=== PATIENT | female | born 1985 | race Caucasian/White ===

== ENCOUNTER 2017-10-22 22:00 | Inpatient (IN) | payer OTHER ==
[2017-10-23] MEDS ORDERED: BISACODYL 10 MG SUPP PR (00:30)
[2017-10-23] MEDS ORDERED: MAGNESIUM HYDROXIDE 30ML CUP PO (00:30)
[2017-10-23] MEDS: CEFTRIAXONE 2 GM/50 ML (PMX) 50 ML IVPB ×2 (00:30→15:16)
[2017-10-23] MEDS ORDERED: HYDROCODONE/APAP (5/325) TAB PO ×2 (00:30)
[2017-10-23] MEDS ORDERED: VANCOMYCIN IV PER PHARMACY XX (00:30)
[2017-10-23] MEDS ORDERED: NACL 0.9% 3 ML SYG IV (00:30)
[2017-10-23] MEDS ORDERED: NITROGLYCERIN (SL) 0.4 MG TAB SL (00:30)
[2017-10-23] MEDS ORDERED: DOCUSATE SODIUM 100 MG CAP PO (00:30)
[2017-10-23] MEDS: morphine 2 MG INJ IV (01:46)
[2017-10-23 01:54] LABS: ABNORMAL IP MESSAGE 1; HEMATOCRIT 44.5 % (37.0-47.0); MEAN CORPUSCULAR HGB CONC 31.5 g/dl (32.0-37.0); MEAN CORPUSCULAR VOLUME 85.7 fl (82.0-101.0); MEAN PLATELET VOLUME 11.3 fl (7.4-10.4); NUCLEATED RED BLOOD CELLS% 0.1 /100WBC (0.0-0.0); PLATELET COUNT 120 10^3/UL (140-415); RED BLOOD COUNT 5.19 10^6/ul (4.20-5.40)
[2017-10-23 01:54] LABS: WHITE BLOOD COUNT 16.4 10^3/ul (4.8-10.8)
[2017-10-23 02:22] LABS: ADD MAN DIFF? YES; POSITIVE DIFF @See below
[2017-10-23 02:35] LABS: LACTIC ACID 3.5 mmol/L (0.5-2.0)
[2017-10-23 02:44] LABS: ALANINE AMINOTRANSFERASE 481 IU/L (13-69); ALBUMIN/GLOBULIN RATIO 1.02; ALKALINE PHOSPHATASE 83 IU/L (42-121); ANION GAP 22 (8-16); BILIRUBIN,INDIRECT 0.5 mg/dl (0-1.1); BILIRUBIN,TOTAL 0.5 mg/dl (0.2-1.3); BLOOD UREA NITROGEN 33 mg/dl (7-20); C-REACTIVE PROTEIN 5.2 mg/dl (0.0-0.9); CALCIUM 8.7 mg/dl (8.4-10.2); CARBON DIOXIDE 19 mmol/L (21-31); CHLORIDE 104 mmol/L (97-110); CREATININE 1.97 mg/dl (0.44-1.00); GLUCOSE 102 mg/dl (70-220); SODIUM 139 mmol/L (135-144); TOTAL PROTEIN 7.9 g/dl (6.1-8.1)
[2017-10-23 02:52] LABS: CK-MB 3.89 ng/ml (0.0-2.4); TROPONIN-I 0.047 ng/ml (0.00-0.12)
[2017-10-23 03:22] LABS: ASPARTATE AMINO TRANSFERASE 872 IU/L (15-46)
[2017-10-23 03:25] LABS: B-TYPE NATRIURETIC PEPTIDE 41600 PG/ML (0-125)
[2017-10-23] MEDS: VANCOMYCIN 1 GM 250 ML IVPB ×2 (03:33→03:41)
[2017-10-23 03:52] LABS: ERYTHROCYTE SEDIMENTATION RATE 2 mm/Hr (0-20)
[2017-10-23 04:16] LABS: LYMPHOCYTES # 9.5 10^3/ul (0.8-2.9); LYMPHOCYTES #M 9.5 10^3/ul (0.8-2.9); LYMPHOCYTES % (M) 58 % (15-51); MONOCYTE # 0.5 10^3/ul (0.3-0.9); MONOCYTE #M 0.4 10^3/ul (0.3-0.9); MONOCYTES % (M) 3 % (0-11); SEGMENTED NEUTROPHILS (M) % 39 % (39-77)
[2017-10-23 04:18] LABS: ANISOCYTOSIS 1+ (0-0); BURR CELLS 1+; POLYCHROMASIA 1+ (0-0)
[2017-10-23 04:19] LABS: OVALOCYTES 1+ (0-0)
[2017-10-23] MEDS: METHADONE 10 MG TAB PO (06:32)
[2017-10-23 07:08] LABS: POTASSIUM 6.2 mmol/L (3.5-5.1)
[2017-10-23 08:49] LABS: CK INDEX 2.5
[2017-10-23 08:51] LABS: CREATINE KINASE 156 IU/L (23-200)
[2017-10-23] MEDS: ENOXAPARIN 40 MG/0.4 ML SYG SC (09:00)
[2017-10-23] MEDS: FUROSEMIDE 20 MG INJ IV (09:00)
[2017-10-23 09:25] LABS: HIV 1&2 ANTIBODY NEGATIVE (NEGATIVE)
[2017-10-23] MEDS: FAMOTIDINE 20 MG TAB PO ×2 (09:39→20:29)
[2017-10-23] MEDS: ASPIRIN 81 MG TAB PO (09:39)
[2017-10-23] MEDS: LORAZEPAM 0.5 MG TAB PO (09:39)
[2017-10-23 10:50] LABS: CREATINE KINASE 123 IU/L (23-200)
[2017-10-23 10:53] LABS: CK INDEX 3.3; CK-MB 4.07 ng/ml (0.0-2.4)
[2017-10-23 11:02] LABS: TROPONIN-I 0.131 ng/ml (0.00-0.12)
[2017-10-23] MEDS: ONDANSETRON 4 MG INJ IV (11:06)
[2017-10-23 12:54] LABS: ANION GAP 19 (8-16); BLOOD UREA NITROGEN 37 mg/dl (7-20); CALCIUM 8.4 mg/dl (8.4-10.2); CARBON DIOXIDE 22 mmol/L (21-31); CHLORIDE 104 mmol/L (97-110); CREATININE 2.13 mg/dl (0.44-1.00); GLUCOSE 85 mg/dl (70-220); SODIUM 138 mmol/L (135-144)
[2017-10-23 12:58] LABS: POTASSIUM 7.1 mmol/L (3.5-5.1)
[2017-10-23] MEDS: NICOTINE (21 MG/24 HR) PATCH TRANSDERM (13:00)
[2017-10-23] MEDS: SILDENAFIL 20 MG TAB PO (13:00)
[2017-10-23] MEDS: SOD CHLORIDE 0.9% 250 ML IV ×2 (13:26→16:30)
[2017-10-23 13:41] LABS: HAAIG REFLEX REFLEX FILED
[2017-10-23 14:33] LABS: HEPATITIS B SURFACE ANTIGEN NEGATIVE (NEGATIVE)
[2017-10-23 14:51] LABS: HEPATITIS B CORE ANTIBODY NEGATIVE (NEGATIVE)
[2017-10-23 14:53] LABS: HEPATITIS C VIRAL ANTIBODY REACTIVE (NEGATIVE)
[2017-10-23] MEDS: NA POLYST SULFON 15 GM/60 ML BTL PO ×2 (15:00→15:54)
[2017-10-23] MEDS: SOD CHLORIDE 0.9% 1,000 ML IV ×2 (15:16→22:44)
[2017-10-23 15:21] LABS: CREATINE KINASE 148 IU/L (23-200)
[2017-10-23 15:28] LABS: LACTIC ACID 3.1 mmol/L (0.5-2.0)
[2017-10-23 15:29] LABS: AMPHETAMINE/METHAMPHETAMINE POSITIVE (NEGATIVE); BARBITURATES Negative (NEGATIVE); BENZODIAZEPINES Negative (NEGATIVE); CANNABINOIDS Negative (NEGATIVE); COCAINE Negative (NEGATIVE); OPIATES Positive (NEGATIVE)
[2017-10-23 15:30] LABS: CK INDEX 2.9; CK-MB 4.23 ng/ml (0.0-2.4)
[2017-10-23 15:37] LABS: TROPONIN-I 0.103 ng/ml (0.00-0.12)
[2017-10-23] MEDS: NA BICARBONATE 8.4% 50 ML SYG IV (15:50)
[2017-10-23 16:08] LABS: ANION GAP 21 (8-16); BLOOD UREA NITROGEN 41 mg/dl (7-20); CALCIUM 8.5 mg/dl (8.4-10.2); CARBON DIOXIDE 21 mmol/L (21-31); CHLORIDE 102 mmol/L (97-110); CREATININE 2.15 mg/dl (0.44-1.00); GLUCOSE 123 mg/dl (70-220); POTASSIUM 5.9 mmol/L (3.5-5.1); SODIUM 138 mmol/L (135-144)
[2017-10-23] MEDS: ACETAMINOPHEN 325 MG TAB PO (20:27)
[2017-10-24] MEDS: ONDANSETRON 4 MG INJ IV ×2 (06:14→23:30)
[2017-10-24 06:59] LABS: ADD MAN DIFF? NO
[2017-10-24 07:10] LABS: ABNORMAL IP MESSAGE 1; BASOPHILS % 0.4 % (0.0-2.0); EOSINOPHILS # 0.1 10^3/ul (0.0-0.5); HEMATOCRIT 47.4 % (37.0-47.0); HEMOGLOBIN 15.2 g/dl (12.0-16.0); LYMPHOCYTES % 46.3 % (15.0-51.0); MEAN CORPUSCULAR HEMOGLOBIN 27.3 pg (29.0-33.0); MEAN CORPUSCULAR HGB CONC 32.1 g/dl (32.0-37.0); MEAN CORPUSCULAR VOLUME 85.3 fl (82.0-101.0); MONOCYTE # 0.7 10^3/ul (0.3-0.9); MONOCYTES % 6.1 % (0.0-11.0); NEUTROPHILS % 45.6 % (39.0-77.0); NUCLEATED RED BLOOD CELLS% 0.2 /100WBC (0.0-0.0); PLATELET COUNT 100 10^3/UL (140-415); RED BLOOD COUNT 5.56 10^6/ul (4.20-5.40); RED CELL DISTRIBUTION WIDTH 17.2 % (11.5-14.5)
[2017-10-24 07:10] LABS: WHITE BLOOD COUNT 10.8 10^3/ul (4.8-10.8)
[2017-10-24 07:16] LABS: POSITIVE DIFF @See below
[2017-10-24 08:43] LABS: VANCOMYCIN,RANDOM 10.1 ug/ml
[2017-10-24] MEDS: FAMOTIDINE 20 MG TAB PO ×2 (08:48→21:13)
[2017-10-24] MEDS: METHADONE 10 MG TAB PO ×3 (08:48→21:13)
[2017-10-24] MEDS: ASPIRIN 81 MG TAB PO (08:48)
[2017-10-24 10:03] LABS: ALBUMIN 2.8 g/dl (3.3-4.9); ALBUMIN/GLOBULIN RATIO 0.82; ALKALINE PHOSPHATASE 76 IU/L (42-121); ANION GAP 13 (8-16); BILIRUBIN,INDIRECT 0.6 mg/dl (0-1.1); BILIRUBIN,TOTAL 0.6 mg/dl (0.2-1.3); BLOOD UREA NITROGEN 30 mg/dl (7-20); CALCIUM 8.2 mg/dl (8.4-10.2); CARBON DIOXIDE 21 mmol/L (21-31); CHLORIDE 104 mmol/L (97-110); CREATININE 1.29 mg/dl (0.44-1.00); GLUCOSE 153 mg/dl (70-220); POTASSIUM 4.5 mmol/L (3.5-5.1); SODIUM 133 mmol/L (135-144); TOTAL PROTEIN 6.2 g/dl (6.1-8.1)
[2017-10-24 10:03] LABS: MAGNESIUM 1.7 mg/dl (1.7-2.5)
[2017-10-24] MEDS ORDERED: AMIKACIN IV PER PHARMACY XX (10:30)
[2017-10-24 10:38] LABS: ALANINE AMINOTRANSFERASE 1651 IU/L (13-69)
[2017-10-24] MEDS ORDERED: LORAZEPAM 2 MG INJ IV (11:00)
[2017-10-24] MEDS ORDERED: ALBUTEROL 0.083% (NEB) 2.5 MG/3 ML AMP NEB (11:30)
[2017-10-24] MEDS: VANCOMYCIN 500MG/NS (PMX) 100 ML IVPB ×2 (11:53→23:10)
[2017-10-24] MEDS: NA POLYST SULFON 15 GM/60 ML BTL PO ×2 (12:06)
[2017-10-24] MEDS: SOD CHLORIDE 0.9% 1,000 ML IV ×3 (12:07→14:49)
[2017-10-24] MEDS: DEXTROSE 50% 50 ML SYRINGE IV (12:23)
[2017-10-24] MEDS: INSULIN REGULAR, HUMAN 100 UNIT/1 ML 3ML VIAL IV (12:27)
[2017-10-24] MEDS ORDERED: AMIKACIN IVPB (13:00)
[2017-10-24] MEDS ORDERED: DEXTROSE 5% IVPB (13:00)
[2017-10-24] MEDS: NICOTINE (21 MG/24 HR) PATCH TRANSDERM (13:00)
[2017-10-24] MEDS: ALBUTEROL/IPRATROPIUM (NEB) 3 ML AMP HHN ×4 (13:04→20:10)
[2017-10-24] MEDS ORDERED: SILDENAFIL 25 MG TAB PO (14:00)
[2017-10-24] MEDS ORDERED: ALBUTEROL/IPRATROPIUM (NEB) 3 ML AMP HHN (14:00)
[2017-10-24] MEDS: SILDENAFIL 20 MG TAB PO ×2 (14:49→22:25)
[2017-10-24 17:07] LABS: IONIZED CALCIUM 1.1 mmol/L (1.1-1.4)
[2017-10-24 18:22] LABS: ADD UMIC YES; UR ASCORBIC ACID 40 mg/dL (NEGATIVE); UR BACTERIA FEW /HPF (NONE SEEN); UR BILIRUBIN (Dip) NEGATIVE (NEGATIVE); UR BLOOD (Dip) NEGATIVE (NEGATIVE); UR CLARITY CLEAR (CLEAR); UR COLOR YELLOW (YELLOW); UR GLUCOSE (Dip) 1+ mg/dL (NEGATIVE); UR KETONES (Dip) NEGATIVE (NEGATIVE); UR LEUKOCYTE ESTERASE (Dip) NEGATIVE Leu/ul (NEGATIVE); UR NITRITE (Dip) NEGATIVE (NEGATIVE); UR RBC 0 /HPF (0-5); UR TOTAL PROTEIN (Dip) 1+ mg/dl (NEGATIVE); UR UROBILINOGEN (Dip) 2+ mg/dL (NEGATIVE); UR WBC 2 /HPF (0-5)
[2017-10-24 19:12] LABS: CREATININE,URINE RANDOM 97.16 mg/dl (20-320)
[2017-10-24 19:12] LABS: SODIUM,URINE RANDOM 13 mmol/L (30-90)
[2017-10-24] MEDS: CEFEPIME 1GM/50 ML (PMX) 50 ML IVPB (21:12)
[2017-10-24] MEDS: morphine 2 MG INJ IV (23:31)
[2017-10-25] MEDS: ALBUTEROL/IPRATROPIUM (NEB) 3 ML AMP HHN ×4 (00:23→12:39)
[2017-10-25] MEDS: SOD CHLORIDE 0.9% 1,000 ML IV ×3 (02:27→17:44)
[2017-10-25 05:54] LABS: ADD MAN DIFF? NO
[2017-10-25 06:06] LABS: WHITE BLOOD COUNT 12.9 10^3/ul (4.8-10.8)
[2017-10-25 06:06] LABS: ABNORMAL IP MESSAGE 1; BASOPHILS % 0.2 % (0.0-2.0); EOSINOPHILS # 0.1 10^3/ul (0.0-0.5); EOSINOPHILS % 0.5 % (0.0-7.0); HEMATOCRIT 36.3 % (37.0-47.0); LYMPHOCYTES # 5.5 10^3/ul (0.8-2.9); LYMPHOCYTES % 42.2 % (15.0-51.0); MEAN CORPUSCULAR HEMOGLOBIN 28.1 pg (29.0-33.0); MEAN CORPUSCULAR HGB CONC 33.1 g/dl (32.0-37.0); MEAN PLATELET VOLUME 12.2 fl (7.4-10.4); MONOCYTE # 0.8 10^3/ul (0.3-0.9); NEUTROPHIL # 6.5 10^3/ul (1.6-7.5); NEUTROPHILS % 50.5 % (39.0-77.0); NUCLEATED RED BLOOD CELLS # 0.1 10^3/ul (0.0-0.0); NUCLEATED RED BLOOD CELLS% 0.4 /100WBC (0.0-0.0); PLATELET COUNT 121 10^3/UL (140-415); RED BLOOD COUNT 4.27 10^6/ul (4.20-5.40)
[2017-10-25 06:15] LABS: POSITIVE DIFF @See below
[2017-10-25] MEDS: SILDENAFIL 20 MG TAB PO ×3 (06:50→21:35)
[2017-10-25 06:58] LABS: ALBUMIN 2.7 g/dl (3.3-4.9); ALBUMIN/GLOBULIN RATIO 0.84; ALKALINE PHOSPHATASE 113 IU/L (42-121); ANION GAP 12 (8-16); BILIRUBIN,INDIRECT 0.6 mg/dl (0-1.1); BILIRUBIN,TOTAL 0.6 mg/dl (0.2-1.3); BLOOD UREA NITROGEN 23 mg/dl (7-20); CALCIUM 7.3 mg/dl (8.4-10.2); CARBON DIOXIDE 18 mmol/L (21-31); CHLORIDE 108 mmol/L (97-110); CREATININE 1.06 mg/dl (0.44-1.00); GLUCOSE 70 mg/dl (70-220); POTASSIUM 5.4 mmol/L (3.5-5.1); SODIUM 133 mmol/L (135-144); TOTAL PROTEIN 5.9 g/dl (6.1-8.1)
[2017-10-25 08:31] LABS: ALANINE AMINOTRANSFERASE 1271 IU/L (13-69); ASPARTATE AMINO TRANSFERASE 1367 IU/L (15-46)
[2017-10-25 08:38] LABS: ERYTHROCYTE SEDIMENTATION RATE 3 mm/Hr (0-20)
[2017-10-25] MEDS: ASPIRIN 81 MG TAB PO (09:22)
[2017-10-25] MEDS: FAMOTIDINE 20 MG TAB PO ×2 (09:22→20:40)
[2017-10-25] MEDS: CEFEPIME 1GM/50 ML (PMX) 50 ML IVPB ×2 (09:22→20:39)
[2017-10-25] MEDS: METHADONE 10 MG TAB PO ×2 (09:26→21:35)
[2017-10-25] MEDS: VANCOMYCIN 500MG/NS (PMX) 100 ML IVPB ×2 (11:45→23:26)
[2017-10-25] MEDS ORDERED: DOPamine 800 MG in DEXTROSE 5% 230 ML IV (12:00)
[2017-10-25 12:18] LABS: ADD MAN DIFF? NO
[2017-10-25 12:21] LABS: BASOPHILS % 0.2 % (0.0-2.0); EOSINOPHILS # 0.1 10^3/ul (0.0-0.5); EOSINOPHILS % 0.4 % (0.0-7.0); HEMATOCRIT 37.8 % (37.0-47.0); HEMOGLOBIN 12.1 g/dl (12.0-16.0); LYMPHOCYTES # 4.7 10^3/ul (0.8-2.9); LYMPHOCYTES % 38.8 % (15.0-51.0); MEAN CORPUSCULAR HEMOGLOBIN 27.2 pg (29.0-33.0); MEAN CORPUSCULAR VOLUME 84.9 fl (82.0-101.0); MEAN PLATELET VOLUME 12.3 fl (7.4-10.4); MONOCYTE # 0.9 10^3/ul (0.3-0.9); MONOCYTES % 7.1 % (0.0-11.0); NEUTROPHIL # 6.4 10^3/ul (1.6-7.5); NEUTROPHILS % 52.8 % (39.0-77.0); NUCLEATED RED BLOOD CELLS% 0.3 /100WBC (0.0-0.0); PLATELET COUNT 126 10^3/UL (140-415); RED BLOOD COUNT 4.45 10^6/ul (4.20-5.40); RED CELL DISTRIBUTION WIDTH 17.4 % (11.5-14.5)
[2017-10-25] MEDS: ALBUMIN HUMAN 25% 50 ML IV (12:32)
[2017-10-25 12:45] LABS: ANION GAP 12 (8-16); BLOOD UREA NITROGEN 24 mg/dl (7-20); CALCIUM 7.7 mg/dl (8.4-10.2); CARBON DIOXIDE 17 mmol/L (21-31); CHLORIDE 107 mmol/L (97-110); CREATININE 1.04 mg/dl (0.44-1.00); GLUCOSE 99 mg/dl (70-220); POTASSIUM 5.4 mmol/L (3.5-5.1); SODIUM 131 mmol/L (135-144)
[2017-10-25] MEDS: NICOTINE (21 MG/24 HR) PATCH TRANSDERM (13:00)
[2017-10-25] MEDS: BUMETANIDE 1 MG INJ IV (13:33)
[2017-10-25 13:46] LABS: ALPHA FETOPROTEIN 1.35 IU/L (0.00-7.21)
[2017-10-25] MEDS ORDERED: POTASSIUM CHLORIDE 20 MEQ POWDER FOR ORAL SOLN PO ×3 (16:30)
[2017-10-25 17:42] LABS: ALBUMIN 2.7 g/dl (3.3-4.9); ALKALINE PHOSPHATASE 86 IU/L (42-121); ANION GAP 12 (8-16); BILIRUBIN,INDIRECT 0.6 mg/dl (0-1.1); BILIRUBIN,TOTAL 0.6 mg/dl (0.2-1.3); BLOOD UREA NITROGEN 23 mg/dl (7-20); CALCIUM 7.6 mg/dl (8.4-10.2); CARBON DIOXIDE 20 mmol/L (21-31); CHLORIDE 106 mmol/L (97-110); CREATININE 1.12 mg/dl (0.44-1.00); GLUCOSE 116 mg/dl (70-220); MAGNESIUM 1.5 mg/dl (1.7-2.5); POTASSIUM 4.8 mmol/L (3.5-5.1); SODIUM 133 mmol/L (135-144); TOTAL PROTEIN 5.7 g/dl (6.1-8.1)
[2017-10-25 17:51] LABS: ALANINE AMINOTRANSFERASE 1078 IU/L (13-69); ASPARTATE AMINO TRANSFERASE 995 IU/L (15-46)
[2017-10-25] MEDS: MAGNESIUM OXIDE 400 MG TAB PO ×2 (20:07→20:40)
[2017-10-25] MEDS: MAGNESIUM SULFATE 2 GM/50 ML 50 ML IVPB (20:40)
[2017-10-25] MEDS: CALCIUM/VITAMIN D (500/200) TAB PO (20:40)
[2017-10-25 23:19] LABS: VANCOMYCIN,TROUGH 9.7 ug/ml (10.0-20.0)
[2017-10-26] MEDS: SILDENAFIL 20 MG TAB PO ×3 (05:47→22:14)
[2017-10-26] MEDS: BUMETANIDE 1 MG INJ IV (08:18)
[2017-10-26] MEDS: ASPIRIN 81 MG TAB PO (08:18)
[2017-10-26] MEDS: VANCOMYCIN 750 MG in DEXTROSE 5% 150 ML IVPB ×3 (08:18→22:28)
[2017-10-26] MEDS: FAMOTIDINE 20 MG TAB PO ×2 (08:18→22:10)
[2017-10-26] MEDS: CALCIUM/VITAMIN D (500/200) TAB PO ×2 (08:18→22:10)
[2017-10-26] MEDS: METHADONE 10 MG TAB PO (09:29)
[2017-10-26] MEDS: CEFEPIME 1GM/50 ML (PMX) 50 ML IVPB (10:27)
[2017-10-26] MEDS: ALBUMIN HUMAN 25% 50 ML IV (11:04)
[2017-10-26 11:17] LABS: ADD MAN DIFF? NO
[2017-10-26 11:25] LABS: BASOPHILS % 0.2 % (0.0-2.0); EOSINOPHILS # 0.1 10^3/ul (0.0-0.5); EOSINOPHILS % 1.3 % (0.0-7.0); HEMATOCRIT 39.3 % (37.0-47.0); LYMPHOCYTES # 3.1 10^3/ul (0.8-2.9); LYMPHOCYTES % 31.1 % (15.0-51.0); MEAN CORPUSCULAR HGB CONC 33.1 g/dl (32.0-37.0); MEAN CORPUSCULAR VOLUME 84.5 fl (82.0-101.0); MONOCYTE # 0.6 10^3/ul (0.3-0.9); MONOCYTES % 5.8 % (0.0-11.0); NEUTROPHIL # 6.1 10^3/ul (1.6-7.5); NEUTROPHILS % 60.8 % (39.0-77.0); NUCLEATED RED BLOOD CELLS% 0.4 /100WBC (0.0-0.0); PLATELET COUNT 126 10^3/UL (140-415); RED BLOOD COUNT 4.65 10^6/ul (4.20-5.40); RED CELL DISTRIBUTION WIDTH 18.6 % (11.5-14.5)
[2017-10-26 12:07] LABS: MAGNESIUM 1.6 mg/dl (1.7-2.5)
[2017-10-26 12:08] LABS: ALANINE AMINOTRANSFERASE 848 IU/L (13-69); ALBUMIN 2.7 g/dl (3.3-4.9); ALBUMIN/GLOBULIN RATIO 0.84; ALKALINE PHOSPHATASE 84 IU/L (42-121); ANION GAP 12 (8-16); ASPARTATE AMINO TRANSFERASE 638 IU/L (15-46); BILIRUBIN,INDIRECT 0.8 mg/dl (0-1.1); BILIRUBIN,TOTAL 0.8 mg/dl (0.2-1.3); BLOOD UREA NITROGEN 19 mg/dl (7-20); CALCIUM 7.9 mg/dl (8.4-10.2); CARBON DIOXIDE 23 mmol/L (21-31); CHLORIDE 103 mmol/L (97-110); CREATININE 0.92 mg/dl (0.44-1.00); GLUCOSE 147 mg/dl (70-220); SODIUM 134 mmol/L (135-144); TOTAL PROTEIN 5.9 g/dl (6.1-8.1)
[2017-10-26] MEDS: CEFTRIAXONE 1 GM/50 ML (PMX) 50 ML IVPB (12:27)
[2017-10-26] MEDS: NICOTINE (21 MG/24 HR) PATCH TRANSDERM (12:27)
[2017-10-26] MEDS ORDERED: CEPHALEXIN 500 MG CAP PO (14:00)
[2017-10-26] MEDS: SOD CHLORIDE 0.9% 1,000 ML IV ×2 (14:02→18:43)
[2017-10-26] MEDS: MAGNESIUM SULFATE 1 GM/D5W 100 ML IVPB (18:33)
[2017-10-26] MEDS: VANCOMYCIN 500MG/NS (PMX) 100 ML IVPB (22:19)
[2017-10-27] MEDS: SILDENAFIL 20 MG TAB PO ×3 (06:00→21:19)
[2017-10-27] MEDS: VANCOMYCIN 750 MG in DEXTROSE 5% 150 ML IVPB (08:22)
[2017-10-27] MEDS: BUMETANIDE 0.5 MG TAB PO (08:25)
[2017-10-27] MEDS: FAMOTIDINE 20 MG TAB PO (08:25)
[2017-10-27] MEDS: CALCIUM/VITAMIN D (500/200) TAB PO ×2 (08:25→21:19)
[2017-10-27] MEDS: ALBUMIN HUMAN 25% 50 ML IV (08:27)
[2017-10-27] MEDS: ASPIRIN 81 MG TAB PO (08:33)
[2017-10-27] MEDS: METHADONE 10 MG TAB PO ×2 (11:13→21:27)
[2017-10-27] MEDS: CEFTRIAXONE 1 GM/50 ML (PMX) 50 ML IVPB (12:52)
[2017-10-27] MEDS: NICOTINE (21 MG/24 HR) PATCH TRANSDERM (13:00)
[2017-10-27 18:16] LABS: MITOCHONDRIAL TB NEGATIVE (NEGATIVE); SMOOTH MUSCLE AB SCREEN NEGATIVE (NEGATIVE)
[2017-10-27 19:01] LABS: ANA SCREEN POSITIVE (NEGATIVE)
[2017-10-27 20:28] LABS: ANA PATTERN SPECKLED
== END 2017-10-27 22:35 | DRG 871 ==
LOC: ICU 10-23 15:32 → TEL 22:00 → MS4 10-26 12:53
DX: A41.9 Sepsis, unspecified organism (principal); N17.0 Acute kidney failure with tubular necrosis; I33.0 Acute and subacute infective endocarditis; I50.21 Acute systolic (congestive) heart failure; I95.9 Hypotension, unspecified; I27.20 Pulmonary hypertension, unspecified; E87.5 Hyperkalemia; I11.0 Hypertensive heart disease with heart failure; R09.02 Hypoxemia; F17.200 Nicotine dependence, unspecified, uncomplicated; F11.10 Opioid abuse, uncomplicated; J44.9 Chronic obstructive pulmonary disease, unspecified; B18.2 Chronic viral hepatitis C; I27.21 Secondary pulmonary arterial hypertension; F15.99 Other stimulant use, unspecified with unspecified stimulant-induced disorder; R06.03 Acute respiratory distress; Z86.14 Personal history of Methicillin resistant Staphylococcus aureus infection; Z87.2 Personal history of diseases of the skin and subcutaneous tissue
CPT/HCPCS: 71010; 71250; 76705; 76775; 78582; 80048; 80053; 80202; 80307; 81001; 82105; 82330; 82550; 82553; 82728; 82962; 83605; 83735; 83880; 84155; 84300; 84484; 84703; 85025; 85651; 86038; 86140; 86255; 86703; 86704; 86709; 86803; 87040; 87081; 87340; 87522; 93005; 93306; 93970; 94640; 94664; J1940

== ENCOUNTER 2017-10-29 11:30 | Inpatient (IN) | payer OTHER ==
[2017-10-29] MEDS ORDERED: VANCOMYCIN IV PER PHARMACY XX (14:00)
[2017-10-29] MEDS ORDERED: BISACODYL 10 MG SUPP PR (14:00)
[2017-10-29] MEDS ORDERED: ONDANSETRON 4 MG TAB PO (14:00)
[2017-10-29] MEDS ORDERED: DOCUSATE SODIUM 100 MG CAP PO ×2 (14:00)
[2017-10-29] MEDS ORDERED: ALBUTEROL/IPRATROPIUM (NEB) 3 ML AMP HHN (14:00)
[2017-10-29] MEDS ORDERED: NACL 0.9% 3 ML SYG IV (14:00)
[2017-10-29] MEDS ORDERED: ACETAMINOPHEN 325 MG TAB PO (14:00)
[2017-10-29] MEDS: FAMOTIDINE 20 MG TAB PO ×2 (15:12→21:00)
[2017-10-29] MEDS: PIPER-TAZO 3.375 GM IV (PMX) 50 ML IVPB ×2 (15:13→19:00)
[2017-10-29] MEDS: FUROSEMIDE 40 MG INJ IV (15:18)
[2017-10-29] MEDS: SILDENAFIL 20 MG TAB PO ×2 (15:32→21:00)
[2017-10-29] MEDS: ASPIRIN 81 MG TAB PO (15:32)
[2017-10-29] MEDS: ACETAMINOPHEN 325 MG TAB PO (18:58)
[2017-10-29] MEDS: VANCOMYCIN 750 MG in DEXTROSE 5% 150 ML IVPB (21:01)
[2017-10-30] MEDS: PIPER-TAZO 3.375 GM IV (PMX) 50 ML IVPB ×4 (00:24→17:17)
[2017-10-30 08:57] LABS: ADD MAN DIFF? NO
[2017-10-30] MEDS: ASPIRIN 81 MG TAB PO (09:09)
[2017-10-30] MEDS: FAMOTIDINE 20 MG TAB PO ×2 (09:09→21:35)
[2017-10-30] MEDS: SILDENAFIL 20 MG TAB PO ×2 (09:09→21:35)
[2017-10-30 09:10] LABS: WHITE BLOOD COUNT 9.5 10^3/ul (4.8-10.8)
[2017-10-30 09:10] LABS: ABNORMAL IP MESSAGE 1; BASOPHILS % 0.1 % (0.0-2.0); EOSINOPHILS # 0.2 10^3/ul (0.0-0.5); EOSINOPHILS % 2.4 % (0.0-7.0); HEMATOCRIT 34.9 % (37.0-47.0); HEMOGLOBIN 11.3 g/dl (12.0-16.0); LYMPHOCYTES # 2.3 10^3/ul (0.8-2.9); LYMPHOCYTES % 24.3 % (15.0-51.0); MEAN CORPUSCULAR HEMOGLOBIN 27.1 pg (29.0-33.0); MEAN CORPUSCULAR HGB CONC 32.4 g/dl (32.0-37.0); MEAN CORPUSCULAR VOLUME 83.7 fl (82.0-101.0); MEAN PLATELET VOLUME 13.6 fl (7.4-10.4); MONOCYTE # 0.6 10^3/ul (0.3-0.9); MONOCYTES % 6.2 % (0.0-11.0); NEUTROPHIL # 6.3 10^3/ul (1.6-7.5); NEUTROPHILS % 66.7 % (39.0-77.0); PLATELET COUNT 148 10^3/UL (140-415); RED BLOOD COUNT 4.17 10^6/ul (4.20-5.40); RED CELL DISTRIBUTION WIDTH 19.3 % (11.5-14.5)
[2017-10-30] MEDS: VANCOMYCIN 750 MG in DEXTROSE 5% 150 ML IVPB ×2 (09:10→21:36)
[2017-10-30] MEDS: METHADONE 10 MG TAB PO ×2 (09:12→21:36)
[2017-10-30 09:19] LABS: POSITIVE DIFF @See below
[2017-10-30 09:31] LABS: ANION GAP 14 (8-16); BLOOD UREA NITROGEN 11 mg/dl (7-20); CALCIUM 7.8 mg/dl (8.4-10.2); CARBON DIOXIDE 29 mmol/L (21-31); CHLORIDE 96 mmol/L (97-110); CREATININE 0.95 mg/dl (0.44-1.00); GLUCOSE 97 mg/dl (70-220); POTASSIUM 3.4 mmol/L (3.5-5.1); SODIUM 136 mmol/L (135-144)
[2017-10-30] MEDS: INFLUENZA VIRUS VACCINE 0.5 ML (DISPENSING) IM* (11:20)
[2017-10-30] MEDS: ACETAMINOPHEN 325 MG TAB PO (14:42)
[2017-10-31] MEDS: PIPER-TAZO 3.375 GM IV (PMX) 50 ML IVPB ×3 (00:53→12:09)
[2017-10-31] MEDS: ACETAMINOPHEN 325 MG TAB PO (03:37)
[2017-10-31] MEDS: ASPIRIN 81 MG TAB PO (08:44)
[2017-10-31] MEDS: SILDENAFIL 20 MG TAB PO ×2 (08:45→20:37)
[2017-10-31] MEDS: FAMOTIDINE 20 MG TAB PO ×2 (08:45→20:37)
[2017-10-31] MEDS: VANCOMYCIN 750 MG in DEXTROSE 5% 150 ML IVPB ×3 (08:46→20:36)
[2017-10-31] MEDS: METHADONE 10 MG TAB PO (08:56)
[2017-10-31 10:52] LABS: ADD MAN DIFF? NO
[2017-10-31 10:57] LABS: WHITE BLOOD COUNT 9.1 10^3/ul (4.8-10.8)
[2017-10-31 10:57] LABS: BASOPHILS % 0.2 % (0.0-2.0); EOSINOPHILS # 0.2 10^3/ul (0.0-0.5); EOSINOPHILS % 1.9 % (0.0-7.0); HEMATOCRIT 36.7 % (37.0-47.0); LYMPHOCYTES # 2.9 10^3/ul (0.8-2.9); LYMPHOCYTES % 31.2 % (15.0-51.0); MEAN CORPUSCULAR HEMOGLOBIN 27.4 pg (29.0-33.0); MEAN CORPUSCULAR HGB CONC 32.7 g/dl (32.0-37.0); MEAN CORPUSCULAR VOLUME 83.8 fl (82.0-101.0); MEAN PLATELET VOLUME 10.9 fl (7.4-10.4); MONOCYTE # 0.7 10^3/ul (0.3-0.9); MONOCYTES % 7.3 % (0.0-11.0); NEUTROPHIL # 5.4 10^3/ul (1.6-7.5); NEUTROPHILS % 59.1 % (39.0-77.0); PLATELET COUNT 130 10^3/UL (140-415); RED BLOOD COUNT 4.38 10^6/ul (4.20-5.40); RED CELL DISTRIBUTION WIDTH 19.6 % (11.5-14.5)
[2017-10-31 11:06] LABS: POSITIVE DIFF @See below
[2017-10-31 11:26] LABS: ALANINE AMINOTRANSFERASE 263 IU/L (13-69); ALBUMIN 3.1 g/dl (3.3-4.9); ALBUMIN/GLOBULIN RATIO 1.03; ALKALINE PHOSPHATASE 68 IU/L (42-121); ANION GAP 15 (8-16); ASPARTATE AMINO TRANSFERASE 106 IU/L (15-46); BLOOD UREA NITROGEN 9 mg/dl (7-20); CALCIUM 8.3 mg/dl (8.4-10.2); CARBON DIOXIDE 27 mmol/L (21-31); CHLORIDE 101 mmol/L (97-110); CREATININE 0.92 mg/dl (0.44-1.00); GLUCOSE 78 mg/dl (70-220); SODIUM 139 mmol/L (135-144); TOTAL PROTEIN 6.1 g/dl (6.1-8.1)
[2017-10-31 11:30] LABS: VANCOMYCIN,TROUGH 7.5 ug/ml (10.0-20.0)
[2017-10-31] MEDS: CEFTRIAXONE 2 GM/50 ML (PMX) 50 ML IVPB (15:29)
[2017-10-31] MEDS: FLUCONAZOLE 100 MG TAB PO (15:29)
[2017-10-31] MEDS: ENOXAPARIN 60 MG/0.6 ML SYG SC ×2 (17:00→21:12)
[2017-10-31 23:50] LABS: AMPHETAMINE/METHAMPHETAMINE Positive (NEGATIVE); BARBITURATES Negative (NEGATIVE); BENZODIAZEPINES Negative (NEGATIVE); CANNABINOIDS Negative (NEGATIVE); COCAINE Negative (NEGATIVE); OPIATES Positive (NEGATIVE)
[2017-11-01] MEDS: ACETAMINOPHEN 325 MG TAB PO ×2 (03:45→04:10)
[2017-11-01] MEDS: VANCOMYCIN 750 MG in DEXTROSE 5% 150 ML IVPB (05:22)
[2017-11-01] MEDS ORDERED: LIDOCAINE 1% (MPF) 5 ML VIAL SC (06:00)
[2017-11-01] MEDS: FLUCONAZOLE 100 MG TAB PO (08:40)
[2017-11-01] MEDS: FAMOTIDINE 20 MG TAB PO (08:40)
[2017-11-01] MEDS: ASPIRIN 81 MG TAB PO (08:41)
[2017-11-01] MEDS: SILDENAFIL 20 MG TAB PO (08:41)
[2017-11-01] MEDS: ENOXAPARIN 60 MG/0.6 ML SYG SC (08:50)
[2017-11-01] MEDS: METHADONE 10 MG TAB PO (09:11)
== END 2017-11-01 11:10 | disposition left against medical advice (07) | DRG 871 ==
LOC: TEL 11:30
PROVIDERS: Internal Medicine
DX: A41.01 Sepsis due to Methicillin susceptible Staphylococcus aureus (principal); I33.0 Acute and subacute infective endocarditis; T80.219A Unspecified infection due to central venous catheter, initial encounter; N17.9 Acute kidney failure, unspecified; I50.30 Unspecified diastolic (congestive) heart failure; I27.20 Pulmonary hypertension, unspecified; F11.20 Opioid dependence, uncomplicated; I80.8 Phlebitis and thrombophlebitis of other sites; I27.21 Secondary pulmonary arterial hypertension; R06.03 Acute respiratory distress; R09.02 Hypoxemia; B19.20 Unspecified viral hepatitis C without hepatic coma; Y71.8 Miscellaneous cardiovascular devices associated with adverse incidents, not elsewhere classified; Z59.0 Homelessness; F15.90 Other stimulant use, unspecified, uncomplicated; F17.210 Nicotine dependence, cigarettes, uncomplicated
CPT/HCPCS: 80048; 80053; 80202; 80307; 84703; 85025; 87040; 87070; 90686; 93971

== ENCOUNTER 2018-03-29 06:34 | Inpatient (IN) | payer OTHER ==
[2018-03-29] MEDS: SODIUM CHLORIDE 0.9% 1L BAG IV* (08:08)
[2018-03-29] MEDS: IBUPROFEN 600 MG TAB PO (08:09)
[2018-03-29] MEDS: CEFTRIAXONE 1 GM/50 ML (PMX) 50 ML IVPB ×2 (08:09→08:48)
[2018-03-29 08:28] LABS: ADD MAN DIFF? NO
[2018-03-29 08:31] LABS: BASOPHILS % 0.2 % (0.0-2.0); EOSINOPHILS # 0.1 10^3/ul (0.0-0.5); HEMATOCRIT 36.1 % (37.0-47.0); HEMOGLOBIN 11.4 g/dl (12.0-16.0); LYMPHOCYTES # 4.8 10^3/ul (0.8-2.9); LYMPHOCYTES % 37.9 % (15.0-51.0); MEAN CORPUSCULAR HEMOGLOBIN 25.4 pg (29.0-33.0); MEAN CORPUSCULAR HGB CONC 31.6 g/dl (32.0-37.0); MEAN CORPUSCULAR VOLUME 80.4 fl (82.0-101.0); MEAN PLATELET VOLUME 9.9 fl (7.4-10.4); MONOCYTE # 0.7 10^3/ul (0.3-0.9); MONOCYTES % 5.2 % (0.0-11.0); NEUTROPHILS % 55.2 % (39.0-77.0); PLATELET COUNT 301 10^3/UL (140-415); RED BLOOD COUNT 4.49 10^6/ul (4.20-5.40); RED CELL DISTRIBUTION WIDTH 16.9 % (11.5-14.5)
[2018-03-29 08:31] LABS: WHITE BLOOD COUNT 12.6 10^3/ul (4.8-10.8)
[2018-03-29 08:52] LABS: ALANINE AMINOTRANSFERASE 53 IU/L (13-69); ALBUMIN 3.1 g/dl (3.3-4.9); ALBUMIN/GLOBULIN RATIO 0.79; ALKALINE PHOSPHATASE 105 IU/L (42-121); ANION GAP 14 (8-16); ASPARTATE AMINO TRANSFERASE 45 IU/L (15-46); BILIRUBIN,INDIRECT 0.4 mg/dl (0-1.1); BILIRUBIN,TOTAL 0.4 mg/dl (0.2-1.3); BLOOD UREA NITROGEN 14 mg/dl (7-20); CALCIUM 8.5 mg/dl (8.4-10.2); CARBON DIOXIDE 24 mmol/L (21-31); CHLORIDE 106 mmol/L (97-110); CREATININE 0.61 mg/dl (0.44-1.00); GLUCOSE 118 mg/dl (70-220); LIPASE 26 U/L (23-300); POTASSIUM 4.3 mmol/L (3.5-5.1); SODIUM 140 mmol/L (135-144)
[2018-03-29 08:55] LABS: LACTIC ACID 1.7 mmol/L (0.5-2.0)
[2018-03-29 08:56] LABS: INR 1.08; PROTIME 14.1 Sec (11.9-14.9); PT RATIO 1.1
[2018-03-29 08:57] LABS: PARTIAL THROMBOPLASTIN TIME 33.2 Sec (25.0-35.0)
[2018-03-29 09:05] LABS: TROPONIN-I < 0.012 ng/ml (0.000-0.120)
[2018-03-29] MEDS: VANCOMYCIN 1 GM (PMX) 250 ML IVPB ×2 (09:26→14:00)
[2018-03-29] MEDS: IOHEXOL 100 ML (10:48)
[2018-03-29] MEDS: SOD CHLORIDE 0.9% 100 ML (10:49)
[2018-03-29 11:44] LABS: ADD UMIC YES; UR ASCORBIC ACID NEGATIVE (NEGATIVE); UR BACTERIA FEW /HPF (NONE SEEN); UR BILIRUBIN (Dip) NEGATIVE (NEGATIVE); UR BLOOD (Dip) NEGATIVE (NEGATIVE); UR CLARITY CLEAR (CLEAR); UR COLOR YELLOW (YELLOW); UR GLUCOSE (Dip) NEGATIVE (NEGATIVE); UR KETONES (Dip) NEGATIVE (NEGATIVE); UR LEUKOCYTE ESTERASE (Dip) NEGATIVE Leu/ul (NEGATIVE); UR MUCUS FEW /HPF (NONE SEEN); UR NITRITE (Dip) NEGATIVE (NEGATIVE); UR RBC 1 /HPF (0-5); UR SPECIFIC GRAVITY (Dip) 1.026 (1.003-1.030); UR SQUAMOUS EPITHELIAL CELL FEW /HPF (FEW); UR TOTAL PROTEIN (Dip) 2+ mg/dl (NEGATIVE); UR UROBILINOGEN (Dip) 2+ mg/dL (NEGATIVE); UR WBC 3 /HPF (0-5)
[2018-03-29] MEDS: MEROPENEM 1 GM/50ML(PMX) 50 ML IVPB (13:52)
[2018-03-29] MEDS ORDERED: VANCOMYCIN IV PER PHARMACY XX (16:00)
[2018-03-29] MEDS ORDERED: DOCUSATE SODIUM 100 MG CAP PO (16:00)
[2018-03-29] MEDS ORDERED: NACL 0.9% 3 ML SYG IV (16:00)
[2018-03-29] MEDS ORDERED: ACETAMINOPHEN 325 MG TAB PO (16:00)
[2018-03-29] MEDS ORDERED: ONDANSETRON 4 MG INJ IV (16:00)
[2018-03-29 16:13] LABS: B-TYPE NATRIURETIC PEPTIDE 6140 PG/ML (0-125)
[2018-03-29] MEDS: NICOTINE (7 MG/24 HR) PATCH TRANSDERM (16:20)
[2018-03-29] MEDS: FUROSEMIDE 40 MG INJ IV (16:37)
[2018-03-29] MEDS: PIPER-TAZO 3.375 GM IV (PMX) 100 ML IVPB ×2 (17:32→23:16)
[2018-03-29] MEDS: VANCOMYCIN 750 MG in DEXTROSE 5% 150 ML IVPB (18:30)
[2018-03-29] MEDS: SILDENAFIL 20 MG TAB PO (20:18)
[2018-03-29] MEDS: METHADONE 5 MG TAB PO (20:18)
[2018-03-30] MEDS: VANCOMYCIN 750 MG in DEXTROSE 5% 150 ML IVPB (02:01)
[2018-03-30] MEDS: PIPER-TAZO 3.375 GM IV (PMX) 100 ML IVPB (05:30)
[2018-03-30] MEDS: FUROSEMIDE 20 MG TAB PO (08:52)
[2018-03-30] MEDS: ENOXAPARIN 40 MG/0.4 ML SYG SC (08:52)
[2018-03-30] MEDS: NICOTINE (7 MG/24 HR) PATCH TRANSDERM (08:53)
[2018-03-30] MEDS: SILDENAFIL 20 MG TAB PO (08:53)
[2018-03-30] MEDS: METHADONE 5 MG TAB PO (08:56)
[2018-03-30 09:16] LABS: ADD MAN DIFF? NO
[2018-03-30 09:20] LABS: BASOPHILS % 0.2 % (0.0-2.0); EOSINOPHILS # 0.1 10^3/ul (0.0-0.5); EOSINOPHILS % 1.3 % (0.0-7.0); HEMATOCRIT 35.3 % (37.0-47.0); HEMOGLOBIN 11.2 g/dl (12.0-16.0); LYMPHOCYTES # 3.1 10^3/ul (0.8-2.9); MEAN CORPUSCULAR HEMOGLOBIN 25.5 pg (29.0-33.0); MEAN CORPUSCULAR HGB CONC 31.7 g/dl (32.0-37.0); MEAN CORPUSCULAR VOLUME 80.2 fl (82.0-101.0); MEAN PLATELET VOLUME 10.5 fl (7.4-10.4); MONOCYTE # 0.5 10^3/ul (0.3-0.9); MONOCYTES % 4.8 % (0.0-11.0); NEUTROPHIL # 6.9 10^3/ul (1.6-7.5); NEUTROPHILS % 64.1 % (39.0-77.0); PLATELET COUNT 301 10^3/UL (140-415); RED CELL DISTRIBUTION WIDTH 16.9 % (11.5-14.5)
[2018-03-30 09:20] LABS: WHITE BLOOD COUNT 10.8 10^3/ul (4.8-10.8)
[2018-03-30 09:40] LABS: ANION GAP 14 (8-16); BLOOD UREA NITROGEN 10 mg/dl (7-20); CALCIUM 8.5 mg/dl (8.4-10.2); CARBON DIOXIDE 24 mmol/L (21-31); CHLORIDE 108 mmol/L (97-110); CREATININE 0.67 mg/dl (0.44-1.00); GLUCOSE 93 mg/dl (70-220); SODIUM 141 mmol/L (135-144)
[2018-03-30 09:44] LABS: VANCOMYCIN,TROUGH 13.8 ug/ml (10.0-20.0)
== END 2018-03-30 10:51 | disposition left against medical advice (07) | DRG 603 ==
LOC: E/R 06:34 → PP2 13:49
DX: L02.211 Cutaneous abscess of abdominal wall (principal); I11.0 Hypertensive heart disease with heart failure; I27.20 Pulmonary hypertension, unspecified; F11.10 Opioid abuse, uncomplicated; F15.10 Other stimulant abuse, uncomplicated; E86.0 Dehydration; F17.210 Nicotine dependence, cigarettes, uncomplicated; Z79.82 Long term (current) use of aspirin
CPT/HCPCS: 36415; 71045; 71275; 74177; 80048; 80053; 80202; 81001; 81025; 83605; 83690; 83880; 84484; 85025; 85610; 85730; 87040; 87086; 93005; 96374; 96375; 99291-25